=== PATIENT | female | born 1930 | race Caucasian/White ===

== ENCOUNTER 2017-10-18 00:32 | Inpatient (IN) | payer MEDICAID, MEDICARE ==
[~2017-10-18] VITALS: Ht 160 cm; Wt 76.2 kg
[2017-10-18] MEDS ORDERED: HYDROMORPHONE 1 MG/1 ML DISP.SYRIN IV ONE ×2 (01:00→02:00)
[2017-10-18] MEDS ORDERED: ONDANSETRON HCL/PF 4 MG/2 ML VIAL IVP ONE (01:00)
[2017-10-18] MEDS ORDERED: IV NS 0.9% 500 ML BAG IV ONE (01:00)
[2017-10-18] MEDS ORDERED: ONDANSETRON HCL/PF 4 MG/2 ML VIAL ONE (01:01)
[2017-10-18] MEDS ORDERED: HYDROMORPHONE INJ 2 MG/ML DISP.SYRIN ONE ×3 (01:01→02:43)
[2017-10-18 01:38] LABS: RED BLOOD CELL COUNT(AUTO) 4.88 MIL/uL (4.0-5.2); WHITE BLOOD COUNT (AUTO) 7.4 K/uL (4.3-11.0)
[2017-10-18 01:39] LABS: BASOPHILS % (AUTO) 0.5 % (0.0-2.0); EOSINOPHILS % (AUTO) 0.1 % (0.0-6.0); HEMATOCRIT 41 % (33-45); HEMOGLOBIN 13.2 g/dL (11.5-14.8); LYMPHOCYTES # (AUTO) 1.7 /CMM (0.8-4.8); LYMPHOCYTES % (AUTO) 22.9 % (20.0-44.0); MEAN CORPUSCULAR HEMOGLOBIN 27 PG (26.0-33.0); MEAN CORPUSCULAR HGB CONC 33 g/dl (31.0-36.0); MEAN CORPUSCULAR VOLUME 83 fL (82-100); MONOCYTES # (AUTO) 0.5 /CMM (0.1-1.30); MONOCYTES % (AUTO) 7.3 % (2.0-12.0); NEUTROPHILS # (AUTO) 5.1 /CMM (1.8-8.9); NEUTROPHILS % (AUTO) 69.2 % (43.0-81.0); PLATELET COUNT (AUTO) 163 /CMM (150-450); RDW COEFFICIENT OF VARIATION 16.3 (11.5-15.0)
[2017-10-18 01:45] LABS: INR 1.03 (0.87-1.13)
[2017-10-18 01:50] LABS: CARBON DIOXIDE 27 mmol/L (21-32); CHLORIDE 104 mmol/L (98-107); CREATININE 1.5 mg/dL (0.6-1.3); GLUCOSE 132 mg/dL (74-106); SODIUM SERUM 138 mmol/L (136-145); UREA NITROGEN, BLOOD 19 mg/dL (7-18)
[2017-10-18 03:00] VITALS: BP 135/66
[2017-10-18] MEDS ORDERED: HYDROMORPHONE 1 MG/1 ML DISP.SYRIN IV PRN ×2 (03:00→05:00)
[2017-10-18] MEDS: HYDROMORPHONE INJ 2 MG/ML DISP.SYRIN IV PRN ×5 (06:25→23:27)
[2017-10-18 08:00] VITALS: BP 115/56
[2017-10-18] MEDS ORDERED: FUROSEMIDE 40 MG/4 ML VIAL IV SCH (09:30)
[2017-10-18 10:08] LABS: MAGNESIUM 2.1 mg/dL (1.8-2.4); PHOSPHORUS 2.9 mg/dL (2.5-4.9)
[2017-10-18 10:12] LABS: TROPONIN I < 0.017 ng/mL (0.00-0.056)
[2017-10-18 10:19] LABS: CHOLESTEROL 132 mg/dL (<200); HDL CHOLESTEROL 35 mg/dL (40-60); LDL 75 mg/dL (0-99); THYROID STIMULATING HORMONE 2.117 uIU/mL (0.358-3.74); TRIGLYCERIDES 181 mg/dL (30-150)
[2017-10-18 16:00] VITALS: BP_SYST 115; BP_SYST 142; BP_DIAS 56; BP_DIAS 77
[2017-10-18 20:00] VITALS: BP 113/59
[2017-10-18] MEDS: IV NS 0.9% 1,000 ML IV PRN (22:42)
[2017-10-19] MEDS ORDERED: ACETAMINOPHEN 325 MG TABLET PO PRN
[2017-10-19] MEDS: HYDROMORPHONE INJ 2 MG/ML DISP.SYRIN IV PRN ×3 (05:58→14:24)
[2017-10-19 07:29] LABS: ALKALINE PHOSPHATASE 83 U/L (46-116); BILIRUBIN,TOTAL 0.8 mg/dL (0.2-1.0); CALCIUM, SERUM 9.2 mg/dL (8.5-10.1); CARBON DIOXIDE 26 mmol/L (21-32); CHLORIDE 102 mmol/L (98-107); CREATININE 1.4 mg/dL (0.6-1.3); GLUCOSE 160 mg/dL (74-106); PHOSPHORUS 3.1 mg/dL (2.5-4.9); POTASSIUM 4.4 mmol/L (3.5-5.1); SODIUM SERUM 139 mmol/L (136-145); UREA NITROGEN, BLOOD 14 mg/dL (7-18)
[2017-10-19 07:30] LABS: ALANINE AMINOTRANSFERASE 15 U/L (12-78); ASPARTATE AMINOTRANSFERASE 18 U/L (15-37); TOTAL PROTEIN, SERUM 6.9 g/dL (6.4-8.2)
[2017-10-19 07:47] LABS: BASOPHILS % (AUTO) 0.1 % (0.0-2.0); EOSINOPHILS % (AUTO) 0.1 % (0.0-6.0); HEMATOCRIT 43 % (33-45); HEMOGLOBIN 14.3 g/dL (11.5-14.8); LYMPHOCYTES # (AUTO) 1.2 /CMM (0.8-4.8); LYMPHOCYTES % (AUTO) 11.6 % (20.0-44.0); MEAN CORPUSCULAR HEMOGLOBIN 28 PG (26.0-33.0); MEAN CORPUSCULAR HGB CONC 34 g/dl (31.0-36.0); MEAN CORPUSCULAR VOLUME 83 fL (82-100); MONOCYTES # (AUTO) 0.6 /CMM (0.1-1.30); MONOCYTES % (AUTO) 5.6 % (2.0-12.0); NEUTROPHILS # (AUTO) 8.7 /CMM (1.8-8.9); NEUTROPHILS % (AUTO) 82.6 % (43.0-81.0); PLATELET COUNT (AUTO) 171 /CMM (150-450); RDW COEFFICIENT OF VARIATION 14.8 (11.5-15.0); RED BLOOD CELL COUNT(AUTO) 5.19 MIL/uL (4.0-5.2); WHITE BLOOD COUNT (AUTO) 10.5 K/uL (4.3-11.0)
[2017-10-19 08:00] VITALS: BP 170/76
[2017-10-19] MEDS ORDERED: ONDANSETRON HCL/PF 4 MG/2 ML VIAL IV PRN (09:00)
[2017-10-19] MEDS ORDERED: HYDROMORPHONE INJ 2 MG/ML DISP.SYRIN IV ONE (11:00)
[2017-10-19] MEDS ORDERED: CLON0.1T PO (12:42)
[2017-10-19] MEDS ORDERED: AMLO5TAB2 PO (12:42)
[2017-10-19] MEDS ORDERED: MYRBETRIQ PO (12:42)
[2017-10-19] MEDS ORDERED: CLON1TAB5 PO (12:42)
[2017-10-19] MEDS ORDERED: GABA-534 PO (12:42)
[2017-10-19] MEDS ORDERED: ROSU40TA PO (12:42)
[2017-10-19] MEDS ORDERED: ASPI-1152 PO (12:42)
[2017-10-19] MEDS ORDERED: CLOP75TA15 PO (12:42)
[2017-10-19] MEDS ORDERED: ALLO300T2 PO (12:42)
[2017-10-19] MEDS ORDERED: ESOM40CA PO (12:42)
[2017-10-19] MEDS ORDERED: OLME40TA12 PO (12:42)
[2017-10-19] MEDS ORDERED: GLIM1TAB2 PO (12:42)
[2017-10-19] MEDS ORDERED: SITA100T PO (12:42)
[2017-10-19] MEDS ORDERED: DULO30CA2 PO (12:42)
[2017-10-19] MEDS ORDERED: CARV25TA2 PO (12:42)
[2017-10-19] MEDS: DULOXETINE HCL 30 MG CAPSULE.DR PO SCH (14:00)
[2017-10-19] MEDS: ASPIRIN EC 81 MG TABLET.DR PO SCH (14:27)
[2017-10-19] MEDS: AMLODIPINE BESYLATE 5 MG TABLET PO SCH (14:27)
[2017-10-19] MEDS: CARVEDILOL 12.5 MG TABLET PO SCH ×2 (14:28→21:01)
[2017-10-19] MEDS: clonazePAM 1 MG TABLET PO SCH (14:28)
[2017-10-19] MEDS: GABAPENTIN 300 MG CAPSULE PO SCH ×2 (14:28→16:35)
[2017-10-19] MEDS ORDERED: Z GUARD REMEDY 2 OZ OINT TP PRN (15:30)
[2017-10-19 16:00] VITALS: BP 180/90
[2017-10-19] MEDS: CLONIDINE HCL 0.1 MG TABLET PO SCH (16:35)
[2017-10-19] MEDS: HYDROCODONE/APAP 5/325MG 1 EACH TABLET PO PRN (16:37)
[2017-10-19 20:00] VITALS: BP 135/61
[2017-10-20] MEDS: HYDROCODONE/APAP 5/325MG 1 EACH TABLET PO PRN ×3 (01:58→16:39)
[2017-10-20] MEDS: IV NS 0.9% 1,000 ML IV PRN (03:10)
[2017-10-20 05:00] VITALS: BP 141/58
[2017-10-20] MEDS ORDERED: ANESTHESIA TRAY IN PYXIS 1 EA TRAY MC ONE (06:17)
[2017-10-20] MEDS ORDERED: BACITRACIN 50000 UNITS/VIAL ONE (07:01)
[2017-10-20] MEDS ORDERED: FENTANYL PF 100MCG/2ML AMPUL ONE ×2 (07:13→08:54)
[2017-10-20] MEDS ORDERED: LIDOCAINE 0.5%-EPI 1:200,000 50 ML VIAL ONE (08:02)
[2017-10-20] MEDS ORDERED: LIDOCAINE 1%-EPI 1:100,000 20 ML VIAL ONE (08:02)
[2017-10-20] MEDS ORDERED: LIDOCAINE HCL/PF 1 % 2ML ONE (08:02)
[2017-10-20] MEDS ORDERED: LIDOCAINE 0.5% HCL 50 ML VIAL ONE (08:03)
[2017-10-20 09:45] VITALS: BP 110/57
[2017-10-20 10:00] VITALS: BP_SYST 110; BP_SYST 115; BP_DIAS 56; BP_DIAS 57
[2017-10-20] MEDS: CLONIDINE HCL 0.1 MG TABLET PO SCH ×3 (10:07→16:39)
[2017-10-20] MEDS: GABAPENTIN 300 MG CAPSULE PO SCH ×2 (10:07→16:39)
[2017-10-20] MEDS: DULOXETINE HCL 30 MG CAPSULE.DR PO SCH (10:07)
[2017-10-20] MEDS: CARVEDILOL 12.5 MG TABLET PO SCH ×2 (10:07→21:50)
[2017-10-20] MEDS: ASPIRIN EC 81 MG TABLET.DR PO SCH (10:08)
[2017-10-20] MEDS: clonazePAM 1 MG TABLET PO SCH (10:08)
[2017-10-20] MEDS: AMLODIPINE BESYLATE 5 MG TABLET PO SCH (10:08)
[2017-10-20] MEDS: ANCEF 1 GM/50 ML D5W IV SCH ×4 (15:23→23:02)
[2017-10-20 16:00] VITALS: BP_SYST 126; BP_SYST 138; BP_DIAS 54; BP_DIAS 70
[2017-10-20] MEDS: HYDROMORPHONE INJ 2 MG/ML DISP.SYRIN IV PRN (17:59)
[2017-10-20 20:00] VITALS: BP 109/64
[2017-10-21] MEDS: HYDROMORPHONE INJ 2 MG/ML DISP.SYRIN IV PRN ×4 (01:09→14:27)
[2017-10-21] MEDS: IV NS 0.9% 1,000 ML IV PRN ×2 (05:06→20:04)
[2017-10-21 08:00] VITALS: BP 146/70
[2017-10-21] MEDS: GABAPENTIN 300 MG CAPSULE PO SCH ×2 (08:46→16:19)
[2017-10-21] MEDS: CLONIDINE HCL 0.1 MG TABLET PO SCH ×3 (08:46→16:20)
[2017-10-21] MEDS: AMLODIPINE BESYLATE 5 MG TABLET PO SCH (08:46)
[2017-10-21] MEDS: ASPIRIN EC 81 MG TABLET.DR PO SCH (08:46)
[2017-10-21] MEDS: CARVEDILOL 12.5 MG TABLET PO SCH ×2 (08:46→21:00)
[2017-10-21] MEDS: DULOXETINE HCL 30 MG CAPSULE.DR PO SCH (08:46)
[2017-10-21] MEDS: clonazePAM 1 MG TABLET PO SCH (08:47)
[2017-10-21] MEDS: ENOXAPARIN SODIUM 30 MG/0.3 ML DISP.SYRIN SQ SCH (08:54)
[2017-10-21 09:21] LABS: CALCIUM, SERUM 8.4 mg/dL (8.5-10.1); CARBON DIOXIDE 25 mmol/L (21-32); CHLORIDE 104 mmol/L (98-107); CREATININE 1.2 mg/dL (0.6-1.3); GLUCOSE 145 mg/dL (74-106); POTASSIUM 4.3 mmol/L (3.5-5.1); SODIUM SERUM 136 mmol/L (136-145); UREA NITROGEN, BLOOD 30 mg/dL (7-18)
[2017-10-21 09:26] LABS: ALANINE AMINOTRANSFERASE 14 U/L (12-78); ALBUMIN 2.4 g/dL (3.4-5.0); ALKALINE PHOSPHATASE 68 U/L (46-116); ASPARTATE AMINOTRANSFERASE 15 U/L (15-37); BILIRUBIN,TOTAL 0.4 mg/dL (0.2-1.0); PHOSPHORUS 3.2 mg/dL (2.5-4.9); TOTAL PROTEIN, SERUM 5.8 g/dL (6.4-8.2)
[2017-10-21 09:37] LABS: BASOPHILS % (AUTO) 0.2 % (0.0-2.0); EOSINOPHILS % (AUTO) 0.2 % (0.0-6.0); HEMATOCRIT 36 % (33-45); HEMOGLOBIN 12.4 g/dL (11.5-14.8); LYMPHOCYTES # (AUTO) 1.2 /CMM (0.8-4.8); LYMPHOCYTES % (AUTO) 13.1 % (20.0-44.0); MEAN CORPUSCULAR HEMOGLOBIN 28 PG (26.0-33.0); MEAN CORPUSCULAR HGB CONC 34 g/dl (31.0-36.0); MEAN CORPUSCULAR VOLUME 83 fL (82-100); MONOCYTES # (AUTO) 0.8 /CMM (0.1-1.30); NEUTROPHILS # (AUTO) 7.4 /CMM (1.8-8.9); NEUTROPHILS % (AUTO) 77.5 % (43.0-81.0); PLATELET COUNT (AUTO) 161 /CMM (150-450); RED BLOOD CELL COUNT(AUTO) 4.39 MIL/uL (4.0-5.2); WHITE BLOOD COUNT (AUTO) 9.4 K/uL (4.3-11.0)
[2017-10-21] MEDS ORDERED: ERGOCALCIFEROL (VITAMIN D 2) 50,000 UNIT CAPSULE PO SCH (11:00)
[2017-10-21] MEDS: HYDROCODONE/APAP 5/325MG 1 EACH TABLET PO PRN (11:55)
[2017-10-21 16:00] VITALS: BP 90/49
[2017-10-21 20:00] VITALS: BP_SYST 117; BP_SYST 99; BP_DIAS 59
[2017-10-22] MEDS: HYDROMORPHONE INJ 2 MG/ML DISP.SYRIN IV PRN ×3 (01:28→08:32)
[2017-10-22 07:59] VITALS: BP 173/65
[2017-10-22] MEDS: ASPIRIN EC 81 MG TABLET.DR PO SCH (08:59)
[2017-10-22] MEDS: DULOXETINE HCL 30 MG CAPSULE.DR PO SCH (08:59)
[2017-10-22] MEDS: clonazePAM 1 MG TABLET PO SCH (08:59)
[2017-10-22] MEDS: GABAPENTIN 300 MG CAPSULE PO SCH ×2 (09:00→16:15)
[2017-10-22] MEDS: CARVEDILOL 12.5 MG TABLET PO SCH (09:00)
[2017-10-22] MEDS: ENOXAPARIN SODIUM 30 MG/0.3 ML DISP.SYRIN SQ SCH (09:03)
[2017-10-22] MEDS: CLONIDINE HCL 0.1 MG TABLET PO SCH ×3 (09:57→16:15)
[2017-10-22] MEDS: AMLODIPINE BESYLATE 5 MG TABLET PO SCH (09:57)
[2017-10-22] MEDS: IV NS 0.9% 1,000 ML IV PRN (10:13)
[2017-10-22] MEDS ORDERED: ERGOCALCIFEROL (VITAMIN D 2) 50,000 UNIT CAPSULE PO SCH (11:00)
[2017-10-22] MEDS ORDERED: HYDR-3972 PO (15:12)
[2017-10-22 16:13] VITALS: BP 110/63
[2017-10-22 16:15] VITALS: BP 110/63
[2017-10-22] MEDS: HYDROCODONE/APAP 5/325MG 1 EACH TABLET PO PRN (16:15)
== END 2017-10-22 17:47 | DRG 301 ==
LOC: ER 00:33 → MED 02:35 → MEDSG2 10-20 19:53
PROVIDERS: ADMIT Internal Medicine; ATTEND Internal Medicine
PROC: 0SRR0JZ Replacement of Right Hip Joint, Femoral Surface with Synthetic Substitute, Open Approach (ICD-10-PCS; principal; 2017-10-20 07:00)
DX: S72.001A Fracture of unspecified part of neck of right femur, initial encounter for closed fracture (principal); N17.0 Acute kidney failure with tubular necrosis; I11.0 Hypertensive heart disease with heart failure; I50.32 Chronic diastolic (congestive) heart failure; D68.59 Other primary thrombophilia; W01.0XXA Fall on same level from slipping, tripping and stumbling without subsequent striking against object, initial encounter; Y92.009 Unspecified place in unspecified non-institutional (private) residence as the place of occurrence of the external cause; I25.10 Atherosclerotic heart disease of native coronary artery without angina pectoris; I35.0 Nonrheumatic aortic (valve) stenosis; D50.9 Iron deficiency anemia, unspecified; Y93.9 Activity, unspecified; Y92.003 Bedroom of unspecified non-institutional (private) residence as the place of occurrence of the external cause
CPT/HCPCS: 36415; 71045-TC; 73501; 73502; 80048-TC; 80053-TC; 80061-TC; 82306; 83605-TC; 83735-TC; 84100-TC; 84439-TC; 84443-TC; 84484-TC; 85025-TC; 85730-TC; 86850-TC; 87081-TC; 93307-TC; 97110-TC; 97112-TC; 97116-TC; 97530-TC; A4606; J0690; J1170; J1650; J1940; J2405; J3010; J3490; J7030; J7040; J7060; Z7610

== ENCOUNTER 2018-01-09 12:54 | Inpatient (IN) | payer MEDICARE, MEDICAID ==
[~2018-01-09] VITALS: Ht 165.1 cm; Wt 72.6 kg
[~2018-01-09 12:54] MED LIST: ALLO300T2 PO; AMLO5TAB7 PO; ASPI-1152 PO; CARV25TA2 PO; CLON0.1T PO; CLON1TAB5 PO; CLOP75TA15 PO; DULO30CA2 PO; ESOM40CA PO; GABA-534 PO; GLIM1TAB2 PO; HYDR-3972 PO; MYRBETRIQ PO; OLME40TA12 PO; ROSU40TA PO; SITA100T PO
[2018-01-09] MEDS ORDERED: ASCO500T9 PO (13:26)
[2018-01-09] MEDS ORDERED: HYDR-4076 PO (13:26)
[2018-01-09] MEDS ORDERED: LATA2.5D7 EACHEYE (13:26)
[2018-01-09] MEDS ORDERED: AMIN30LI4 PO (13:26)
[2018-01-09] MEDS ORDERED: FERR325T23 PO (13:26)
[2018-01-09] MEDS ORDERED: DORZ10DR11 LEFTEYE (13:26)
[2018-01-09] MEDS ORDERED: BRIM5DRO3 LEFTEYE (13:26)
[2018-01-09] MEDS ORDERED: CYAN10009 PO (13:26)
[2018-01-09] MEDS ORDERED: POLY15DR40 EACHEYE (13:26)
[2018-01-09] MEDS ORDERED: HYDR-552 PO (13:26)
[2018-01-09] MEDS ORDERED: CHOL100044 PO (13:26)
[2018-01-09] MEDS ORDERED: ACID1TAB12 PO (13:26)
[2018-01-09] MEDS ORDERED: ZOLP5TAB8 PO (13:26)
[2018-01-09] MEDS ORDERED: PANT40TA2 PO (13:26)
[2018-01-09] MEDS ORDERED: MULT-24 PO (13:26)
[2018-01-09] MEDS ORDERED: LISI10TA5 PO (13:26)
[2018-01-09] MEDS ORDERED: DOCU-141 PO (13:26)
[2018-01-09] MEDS ORDERED: BISO5TAB2 PO (13:26)
[2018-01-09] MEDS ORDERED: LINA5TAB PO (13:26)
[2018-01-09] MEDS ORDERED: ACET-868 PO (13:26)
[2018-01-09] MEDS ORDERED: ALBU2.5V38 IH (13:26)
[2018-01-09] MEDS ORDERED: BISA5TAB10 PO (13:26)
[2018-01-09] MEDS ORDERED: ATOR10TA PO (13:26)
[2018-01-09 13:48] LABS: BASOPHILS % (AUTO) 0.2 % (0.0-2.0); HEMATOCRIT 40 % (33-45); HEMOGLOBIN 12.6 g/dL (11.5-14.8); LYMPHOCYTES # (AUTO) 1.6 /CMM (0.8-4.8); LYMPHOCYTES % (AUTO) 13.4 % (20.0-44.0); MEAN CORPUSCULAR HGB CONC 32 g/dl (31.0-36.0); MEAN CORPUSCULAR VOLUME 92 fL (82-100); MONOCYTES # (AUTO) 1.4 /CMM (0.1-1.30); MONOCYTES % (AUTO) 11.9 % (2.0-12.0); NEUTROPHILS # (AUTO) 8.7 /CMM (1.8-8.9); NEUTROPHILS % (AUTO) 74.5 % (43.0-81.0); PLATELET COUNT (AUTO) 226 /CMM (150-450); RDW COEFFICIENT OF VARIATION 19.1 (11.5-15.0); RED BLOOD CELL COUNT(AUTO) 4.37 MIL/uL (4.0-5.2); WHITE BLOOD COUNT (AUTO) 11.6 K/uL (4.3-11.0)
[2018-01-09 13:59] LABS: CALCIUM, SERUM 8.9 mg/dL (8.5-10.1); CARBON DIOXIDE 22 mmol/L (21-32); CHLORIDE 106 mmol/L (98-107); CREATININE 1.3 mg/dL (0.6-1.3); GLUCOSE 120 mg/dL (74-106); POTASSIUM 3.7 mmol/L (3.5-5.1); SODIUM SERUM 139 mmol/L (136-145); UREA NITROGEN, BLOOD 24 mg/dL (7-18)
[2018-01-09 14:06] LABS: TROPONIN I < 0.017 ng/mL (0.00-0.056)
[2018-01-09 14:07] LABS: INR 1.01 (0.87-1.13)
[2018-01-09 14:13] LABS: ALANINE AMINOTRANSFERASE 10 U/L (12-78); ALBUMIN 2.9 g/dL (3.4-5.0); ALKALINE PHOSPHATASE 117 U/L (46-116); ASPARTATE AMINOTRANSFERASE 15 U/L (15-37); BILIRUBIN,DIRECT 0.2 mg/dL (0.0-0.2); BILIRUBIN,TOTAL 0.6 mg/dL (0.2-1.0); LIPASE 77 U/L (73-393); TOTAL PROTEIN, SERUM 6.4 g/dL (6.4-8.2)
[2018-01-09] MEDS ORDERED: FUROSEMIDE 20 MG/2 ML VIAL IV ONE (15:00)
[2018-01-09] MEDS ORDERED: FUROSEMIDE 20 MG/2 ML VIAL ONE (15:18)
[2018-01-09] MEDS ORDERED: MAGNESIUM HYDROXIDE 30 ML UDC PO PRN (17:00)
[2018-01-09] MEDS ORDERED: Z GUARD REMEDY 2 OZ OINT TP PRN (17:00)
[2018-01-09] MEDS ORDERED: ACETAMINOPHEN 325 MG TABLET PO PRN (17:00)
[2018-01-09] MEDS ORDERED: MAG HYDROX/AL HYDROX/SIMETH 30 ML UDC PO PRN (17:00)
[2018-01-09 18:00] VITALS: BP 124/66
[2018-01-09] MEDS ORDERED: BISACODYL (5 MG) 5 MG TABLET.DR PO PRN (19:30)
[2018-01-09] MEDS ORDERED: hydrALAZINE HCL 25 MG TABLET PO PRN (19:30)
[2018-01-09 20:00] VITALS: BP 108/55
[2018-01-09] MEDS: HYDROCODONE/APAP 5/325MG 1 EACH TABLET PO PRN (20:18)
[2018-01-09] MEDS: ENOXAPARIN SODIUM 30 MG/0.3 ML DISP.SYRIN SQ SCH (20:19)
[2018-01-09] MEDS: TIMOLOL MAL/DORZOLAM HCL OPHTH 10 ML BOTTLE LEFTEYE SCH (21:00)
[2018-01-09] MEDS ORDERED: LATANOPROST EYE DROP 0.005% 2.5 ML BOTTLE ONE (21:52)
[2018-01-09] MEDS: ATORVASTATIN 10 MG TABLET PO SCH (23:22)
[2018-01-09] MEDS: LATANOPROST EYE DROP 0.005% 2.5 ML BOTTLE EACHEYE SCH (23:23)
[2018-01-09] MEDS: ZOLPIDEM TARTRATE 5 MG TABLET PO PRN (23:24)
[2018-01-09] MEDS: ALLOPURINOL 100 MG TABLET PO SCH (23:24)
[2018-01-10] VITALS: BP 131/65
[2018-01-10] MEDS ORDERED: ALBUTEROL FS 2.5 MG/3 ML VIAL.NEB NEB PRN (01:30)
[2018-01-10 04:00] VITALS: BP_SYST 125; BP_SYST 131; BP_DIAS 63; BP_DIAS 65
[2018-01-10 04:33] VITALS: BP 125/63
[2018-01-10] MEDS ORDERED: POLYVINYL ALCOHOL 15 ML BOTTLE EACHEYE PRN (07:00)
[2018-01-10 08:00] VITALS: BP 119/56
[2018-01-10] MEDS: ONDANSETRON HCL/PF 4 MG/2 ML VIAL IVP PRN (08:37)
[2018-01-10] MEDS: ASPIRIN EC 81 MG TABLET.DR PO SCH (08:41)
[2018-01-10] MEDS: LINAGLIPTIN 5 MG TABLET PO SCH (08:41)
[2018-01-10] MEDS: CYANOCOBALAMIN 500 MCG TABLET PO SCH (08:44)
[2018-01-10] MEDS: ACIDOPHILUS/BULGARICUS 1 EACH TAB.CHEW PO SCH (08:44)
[2018-01-10] MEDS: CLOPIDOGREL BISULFATE 75 MG TABLET PO SCH (08:44)
[2018-01-10] MEDS: LISINOPRIL (10MG) 10 MG TABLET PO SCH ×2 (08:48→17:00)
[2018-01-10] MEDS: CHOLECALCIFEROL 1,000 UNIT TABLET (VIT D3) PO SCH (08:48)
[2018-01-10] MEDS: PANTOPRAZOLE 40 MG TABLET.DR PO SCH (08:48)
[2018-01-10] MEDS: ASCORBIC ACID 500 MG TABLET PO SCH ×2 (08:48→16:36)
[2018-01-10] MEDS: MULTIVITAMINS,THERAGRAN 1 UDTAB TABLET PO SCH (08:48)
[2018-01-10] MEDS: FERROUS SULFATE (325 MG) 325 MG/TAB TABLET PO SCH (08:50)
[2018-01-10] MEDS: HYDROCODONE/APAP 5/325MG 1 EACH TABLET PO PRN ×3 (08:54→22:29)
[2018-01-10] MEDS ORDERED: GABAPENTIN 300 MG CAPSULE PO SCH (09:00)
[2018-01-10] MEDS: LEVOFLOXACIN 750 MG /D5W 150ML 750 MG in PREMIX 1 EA IV SCH (09:24)
[2018-01-10] MEDS: TIMOLOL MAL/DORZOLAM HCL OPHTH 10 ML BOTTLE LEFTEYE SCH ×2 (09:24→20:34)
[2018-01-10] MEDS: BISOPROLOL FUMARATE 5 MG TABLET PO SCH (09:25)
[2018-01-10 09:38] LABS: BASOPHILS % (AUTO) 0.3 % (0.0-2.0); HEMATOCRIT 39 % (33-45); HEMOGLOBIN 12.3 g/dL (11.5-14.8); LYMPHOCYTES # (AUTO) 1.8 /CMM (0.8-4.8); MEAN CORPUSCULAR HGB CONC 31 g/dl (31.0-36.0); MEAN CORPUSCULAR VOLUME 91 fL (82-100); MONOCYTES # (AUTO) 0.9 /CMM (0.1-1.30); MONOCYTES % (AUTO) 7.4 % (2.0-12.0); NEUTROPHILS # (AUTO) 9.3 /CMM (1.8-8.9); NEUTROPHILS % (AUTO) 77.3 % (43.0-81.0); PLATELET COUNT (AUTO) 252 /CMM (150-450); RDW COEFFICIENT OF VARIATION 19.5 (11.5-15.0)
[2018-01-10 09:52] LABS: CALCIUM, SERUM 8.7 mg/dL (8.5-10.1); CARBON DIOXIDE 22 mmol/L (21-32); CHLORIDE 106 mmol/L (98-107); CREATININE 1.1 mg/dL (0.6-1.3); GLUCOSE 123 mg/dL (74-106); MAGNESIUM 1.7 mg/dL (1.8-2.4); PHOSPHORUS 3.2 mg/dL (2.5-4.9); POTASSIUM 3.7 mmol/L (3.5-5.1); SODIUM SERUM 139 mmol/L (136-145); UREA NITROGEN, BLOOD 18 mg/dL (7-18)
[2018-01-10] MEDS: PROSOURCE / PROSTAT (PYXIS) 30 ML UDC PO SCH ×3 (09:54→16:36)
[2018-01-10 09:57] LABS: TROPONIN I < 0.017 ng/mL (0.00-0.056)
[2018-01-10 10:03] LABS: CHOLESTEROL 152 mg/dL (<200); HDL CHOLESTEROL 33 mg/dL (40-60); LDL 102 mg/dL (0-99); THYROID STIMULATING HORMONE 1.332 uIU/mL (0.358-3.74); TRIGLYCERIDES 177 mg/dL (30-150)
[2018-01-10] MEDS ORDERED: BRIMONIDINE TARTRATE OPHT SOLN 5 ML BOTTLE OP SCH (10:27)
[2018-01-10] MEDS: METRONIDAZOLE 500MG/ NS 100ML 500 MG in PREMIX 1 EA IV SCH ×3 (12:31→23:50)
[2018-01-10] MEDS: VANCOMYCIN HCL 125 MG/2.5 ML ORAL.SUSP PO SCH ×3 (12:59→23:51)
[2018-01-10] MEDS: BRIMONIDINE TARTRATE OPHT SOLN 5 ML BOTTLE LEFTEYE SCH ×2 (13:02→16:37)
[2018-01-10 16:00] VITALS: BP 95/42
[2018-01-10] MEDS: Magnesium 1GM/D5W 100ML PREMIX 100 ML IV SCH ×2 (16:36→18:40)
[2018-01-10] MEDS: ENOXAPARIN SODIUM 30 MG/0.3 ML DISP.SYRIN SQ SCH (17:36)
[2018-01-10 20:00] VITALS: BP 94/48
[2018-01-10] MEDS: LATANOPROST EYE DROP 0.005% 2.5 ML BOTTLE EACHEYE SCH (21:13)
[2018-01-10] MEDS: ALLOPURINOL 100 MG TABLET PO SCH (21:14)
[2018-01-10] MEDS: ZOLPIDEM TARTRATE 5 MG TABLET PO PRN (21:14)
[2018-01-10] MEDS: ATORVASTATIN 10 MG TABLET PO SCH (21:14)
[2018-01-11] MEDS: HYDROCODONE/APAP 5/325MG 1 EACH TABLET PO PRN ×3 (02:49→19:56)
[2018-01-11] MEDS: METRONIDAZOLE 500MG/ NS 100ML 500 MG in PREMIX 1 EA IV SCH ×4 (05:20→23:20)
[2018-01-11] MEDS: VANCOMYCIN HCL 125 MG/2.5 ML ORAL.SUSP PO SCH ×4 (05:22→23:20)
[2018-01-11 06:12] LABS: BASOPHILS % (AUTO) 0.4 % (0.0-2.0); CALCIUM, SERUM 8.8 mg/dL (8.5-10.1); CARBON DIOXIDE 22 mmol/L (21-32); CHLORIDE 106 mmol/L (98-107); CREATININE 1.2 mg/dL (0.6-1.3); GLUCOSE 85 mg/dL (74-106); HEMATOCRIT 38 % (33-45); LYMPHOCYTES # (AUTO) 1.2 /CMM (0.8-4.8); LYMPHOCYTES % (AUTO) 14.2 % (20.0-44.0); MAGNESIUM 2.2 mg/dL (1.8-2.4); MEAN CORPUSCULAR HGB CONC 32 g/dl (31.0-36.0); MEAN CORPUSCULAR VOLUME 91 fL (82-100); MONOCYTES # (AUTO) 0.8 /CMM (0.1-1.30); MONOCYTES % (AUTO) 9.3 % (2.0-12.0); NEUTROPHILS # (AUTO) 6.5 /CMM (1.8-8.9); NEUTROPHILS % (AUTO) 76.1 % (43.0-81.0); PLATELET COUNT (AUTO) 226 /CMM (150-450); POTASSIUM 3.6 mmol/L (3.5-5.1); RDW COEFFICIENT OF VARIATION 18.7 (11.5-15.0); RED BLOOD CELL COUNT(AUTO) 4.11 MIL/uL (4.0-5.2); SODIUM SERUM 138 mmol/L (136-145); UREA NITROGEN, BLOOD 17 mg/dL (7-18); WHITE BLOOD COUNT (AUTO) 8.6 K/uL (4.3-11.0)
[2018-01-11 08:00] VITALS: BP 123/67
[2018-01-11] MEDS: PANTOPRAZOLE 40 MG TABLET.DR PO SCH (08:15)
[2018-01-11] MEDS: CLOPIDOGREL BISULFATE 75 MG TABLET PO SCH (08:15)
[2018-01-11] MEDS: FERROUS SULFATE (325 MG) 325 MG/TAB TABLET PO SCH (08:15)
[2018-01-11] MEDS: CYANOCOBALAMIN 500 MCG TABLET PO SCH (08:15)
[2018-01-11] MEDS: CHOLECALCIFEROL 1,000 UNIT TABLET (VIT D3) PO SCH (08:15)
[2018-01-11] MEDS: ACIDOPHILUS/BULGARICUS 1 EACH TAB.CHEW PO SCH (08:15)
[2018-01-11] MEDS: ASCORBIC ACID 500 MG TABLET PO SCH ×2 (08:15→17:10)
[2018-01-11] MEDS: MULTIVITAMINS,THERAGRAN 1 UDTAB TABLET PO SCH (08:15)
[2018-01-11] MEDS: ASPIRIN EC 81 MG TABLET.DR PO SCH (08:15)
[2018-01-11] MEDS: LISINOPRIL (10MG) 10 MG TABLET PO SCH ×2 (08:16→17:00)
[2018-01-11] MEDS: LINAGLIPTIN 5 MG TABLET PO SCH (08:16)
[2018-01-11] MEDS: TIMOLOL MAL/DORZOLAM HCL OPHTH 10 ML BOTTLE LEFTEYE SCH ×2 (08:34→20:52)
[2018-01-11] MEDS: PROSOURCE / PROSTAT (PYXIS) 30 ML UDC PO SCH ×3 (08:35→17:00)
[2018-01-11] MEDS: BISOPROLOL FUMARATE 5 MG TABLET PO SCH (08:35)
[2018-01-11] MEDS: BRIMONIDINE TARTRATE OPHT SOLN 5 ML BOTTLE LEFTEYE SCH ×3 (09:00→17:00)
[2018-01-11 16:00] VITALS: BP 106/56
[2018-01-11] MEDS: ENOXAPARIN SODIUM 30 MG/0.3 ML DISP.SYRIN SQ SCH (17:08)
[2018-01-11] MEDS: CHOLESTYRAMINE/ASPARTAME 4 G/PKT PACKET PO SCH (19:50)
[2018-01-11 20:00] VITALS: BP 114/65
[2018-01-11] MEDS: RIFAXIMIN 200 MG TABLET PO SCH (20:52)
[2018-01-11] MEDS: ATORVASTATIN 10 MG TABLET PO SCH (21:20)
[2018-01-11] MEDS: ALLOPURINOL 100 MG TABLET PO SCH (21:21)
[2018-01-11] MEDS: LATANOPROST EYE DROP 0.005% 2.5 ML BOTTLE EACHEYE SCH (21:21)
[2018-01-11] MEDS: ZOLPIDEM TARTRATE 5 MG TABLET PO PRN (21:26)
[2018-01-12] MEDS: VANCOMYCIN HCL 125 MG/2.5 ML ORAL.SUSP PO SCH ×3 (05:05→17:47)
[2018-01-12] MEDS: METRONIDAZOLE 500MG/ NS 100ML 500 MG in PREMIX 1 EA IV SCH ×4 (05:05→23:49)
[2018-01-12] MEDS: ONDANSETRON HCL/PF 4 MG/2 ML VIAL IVP PRN (05:29)
[2018-01-12 08:00] VITALS: BP 110/80
[2018-01-12] MEDS: HYDROCODONE/APAP 5/325MG 1 EACH TABLET PO PRN ×4 (08:15→21:06)
[2018-01-12] MEDS: CYANOCOBALAMIN 500 MCG TABLET PO SCH (08:22)
[2018-01-12] MEDS: CHOLECALCIFEROL 1,000 UNIT TABLET (VIT D3) PO SCH (08:22)
[2018-01-12] MEDS: MULTIVITAMINS,THERAGRAN 1 UDTAB TABLET PO SCH (08:22)
[2018-01-12] MEDS: ACIDOPHILUS/BULGARICUS 1 EACH TAB.CHEW PO SCH (08:22)
[2018-01-12] MEDS: ASCORBIC ACID 500 MG TABLET PO SCH ×2 (08:22→17:47)
[2018-01-12] MEDS: CLOPIDOGREL BISULFATE 75 MG TABLET PO SCH (08:22)
[2018-01-12] MEDS: LINAGLIPTIN 5 MG TABLET PO SCH (08:22)
[2018-01-12] MEDS: ASPIRIN EC 81 MG TABLET.DR PO SCH (08:22)
[2018-01-12] MEDS: PANTOPRAZOLE 40 MG TABLET.DR PO SCH (08:23)
[2018-01-12] MEDS: FERROUS SULFATE (325 MG) 325 MG/TAB TABLET PO SCH (08:23)
[2018-01-12] MEDS: LISINOPRIL (10MG) 10 MG TABLET PO SCH ×2 (08:23→17:48)
[2018-01-12] MEDS: LEVOFLOXACIN 750 MG /D5W 150ML 750 MG in PREMIX 1 EA IV SCH (08:27)
[2018-01-12] MEDS: RIFAXIMIN 200 MG TABLET PO SCH ×3 (08:27→17:47)
[2018-01-12] MEDS: BISOPROLOL FUMARATE 5 MG TABLET PO SCH (08:28)
[2018-01-12] MEDS: TIMOLOL MAL/DORZOLAM HCL OPHTH 10 ML BOTTLE LEFTEYE SCH ×2 (08:28→21:00)
[2018-01-12] MEDS: CHOLESTYRAMINE/ASPARTAME 4 G/PKT PACKET PO SCH (08:45)
[2018-01-12] MEDS: PROSOURCE / PROSTAT (PYXIS) 30 ML UDC PO SCH ×3 (10:17→16:31)
[2018-01-12] MEDS: BRIMONIDINE TARTRATE OPHT SOLN 5 ML BOTTLE LEFTEYE SCH ×3 (10:17→17:47)
[2018-01-12 16:00] VITALS: BP 140/69
[2018-01-12] MEDS: GABAPENTIN 300 MG CAPSULE PO SCH (17:47)
[2018-01-12] MEDS: ENOXAPARIN SODIUM 30 MG/0.3 ML DISP.SYRIN SQ SCH (17:49)
[2018-01-12 20:00] VITALS: BP 112/62
[2018-01-12 20:32] VITALS: BP 112/62
[2018-01-12] MEDS: ALLOPURINOL 100 MG TABLET PO SCH (21:06)
[2018-01-12] MEDS: ATORVASTATIN 10 MG TABLET PO SCH (21:06)
[2018-01-12] MEDS: ZOLPIDEM TARTRATE 5 MG TABLET PO PRN (21:06)
[2018-01-12] MEDS: LATANOPROST EYE DROP 0.005% 2.5 ML BOTTLE EACHEYE SCH (22:00)
[2018-01-13] MEDS: METRONIDAZOLE 500MG/ NS 100ML 500 MG in PREMIX 1 EA IV SCH (05:42)
[2018-01-13] MEDS: VANCOMYCIN HCL 125 MG/2.5 ML ORAL.SUSP PO SCH ×3 (05:45→11:47)
[2018-01-13 08:00] VITALS: BP 140/71
[2018-01-13] MEDS: CHOLESTYRAMINE/ASPARTAME 4 G/PKT PACKET PO SCH (08:43)
[2018-01-13] MEDS: LINAGLIPTIN 5 MG TABLET PO SCH (08:43)
[2018-01-13] MEDS: CLOPIDOGREL BISULFATE 75 MG TABLET PO SCH (08:43)
[2018-01-13] MEDS: ASCORBIC ACID 500 MG TABLET PO SCH (08:43)
[2018-01-13] MEDS: PANTOPRAZOLE 40 MG TABLET.DR PO SCH (08:44)
[2018-01-13] MEDS: LISINOPRIL (10MG) 10 MG TABLET PO SCH (08:44)
[2018-01-13] MEDS: CYANOCOBALAMIN 500 MCG TABLET PO SCH (08:44)
[2018-01-13] MEDS: CHOLECALCIFEROL 1,000 UNIT TABLET (VIT D3) PO SCH (08:44)
[2018-01-13] MEDS: MULTIVITAMINS,THERAGRAN 1 UDTAB TABLET PO SCH (08:44)
[2018-01-13] MEDS: ACIDOPHILUS/BULGARICUS 1 EACH TAB.CHEW PO SCH (08:44)
[2018-01-13] MEDS: FERROUS SULFATE (325 MG) 325 MG/TAB TABLET PO SCH (08:44)
[2018-01-13] MEDS: ASPIRIN EC 81 MG TABLET.DR PO SCH (08:44)
[2018-01-13 08:45] VITALS: BP 140/71
[2018-01-13] MEDS: TIMOLOL MAL/DORZOLAM HCL OPHTH 10 ML BOTTLE LEFTEYE SCH (08:45)
[2018-01-13] MEDS: BRIMONIDINE TARTRATE OPHT SOLN 5 ML BOTTLE LEFTEYE SCH ×2 (08:45→12:01)
[2018-01-13] MEDS: BISOPROLOL FUMARATE 5 MG TABLET PO SCH (08:45)
[2018-01-13] MEDS: RIFAXIMIN 200 MG TABLET PO SCH ×2 (08:45→12:01)
[2018-01-13] MEDS: GABAPENTIN 300 MG CAPSULE PO SCH (08:46)
[2018-01-13] MEDS: PROSOURCE / PROSTAT (PYXIS) 30 ML UDC PO SCH ×2 (08:48→12:01)
[2018-01-13] MEDS: ONDANSETRON HCL/PF 4 MG/2 ML VIAL IVP PRN (08:51)
[2018-01-13] MEDS: HYDROCODONE/APAP 5/325MG 1 EACH TABLET PO PRN (09:28)
[2018-01-13] MEDS ORDERED: METRONIDAZOLE 250 MG TABLET PO SCH (12:00)
[2018-01-13] MEDS ORDERED: METR250T PO (12:08)
[2018-01-13] MEDS ORDERED: LEVO750T21 PO (12:08)
[2018-01-13] MEDS ORDERED: RIFA200T2 PO (12:08)
[2018-01-13] MEDS ORDERED: CHOL4PAC4 PO (12:08)
[2018-01-13] MEDS ORDERED: VANC125C11 PO (12:08)
[2018-01-13] MEDS ORDERED: NEOMY SULF/BACITRAC ZN/POLY 15 GM TUBE TP SCH (14:30)
== END 2018-01-13 16:30 | DRG 720 ==
LOC: ER 12:56 → TELE 16:05 → MED 01-10 09:45
PROVIDERS: ADMIT Nurse Practitioner Acute Care; ATTEND Nurse Practitioner Acute Care
DX: A41.9 Sepsis, unspecified organism (principal); I50.33 Acute on chronic diastolic (congestive) heart failure; A04.72 Enterocolitis due to Clostridium difficile, not specified as recurrent; S72.002A Fracture of unspecified part of neck of left femur, initial encounter for closed fracture; E44.1 Mild protein-calorie malnutrition; K57.32 Diverticulitis of large intestine without perforation or abscess without bleeding; E11.9 Type 2 diabetes mellitus without complications; I11.0 Hypertensive heart disease with heart failure; Z88.5 Allergy status to narcotic agent; Z79.82 Long term (current) use of aspirin; Z79.899 Other long term (current) drug therapy; Z79.51 Long term (current) use of inhaled steroids; S61.409A Unspecified open wound of unspecified hand, initial encounter; X58.XXXA Exposure to other specified factors, initial encounter; I35.0 Nonrheumatic aortic (valve) stenosis; W01.0XXA Fall on same level from slipping, tripping and stumbling without subsequent striking against object, initial encounter; Z96.641 Presence of right artificial hip joint; Z79.84 Long term (current) use of oral hypoglycemic drugs; Y92.009 Unspecified place in unspecified non-institutional (private) residence as the place of occurrence of the external cause; E78.5 Hyperlipidemia, unspecified
CPT/HCPCS: 36415; 71045-TC; 72170-TC; 73502; 80048-TC; 80061-TC; 80076-TC; 83605-TC; 83690-TC; 83735-TC; 83880; 84100-TC; 84443-TC; 84484-TC; 85025-TC; 85730-TC; 87045-TC; 87081-TC; 93970-TC; 97110-TC; 97116-TC; 97530-TC; A4216; A4606; J1650; J1940; J1956; J2405; J3475; J3490; J7050; Z7610

== ENCOUNTER 2018-05-06 23:27 | Inpatient (IN) | payer MEDICAID, MEDICARE ==
[~2018-05-06] VITALS: Ht 149.9 cm; Wt 63.8 kg
[~2018-05-06 23:27] MED LIST changes: +ACET-868 PO; +ACID1TAB12 PO; +ALBU2.5V38 IH; +AMIN30LI4 PO; -AMLO5TAB7 PO; +ASCO500T9 PO; +ATOR10TA PO; +BISA5TAB10 PO; +BISO5TAB2 PO; +BRIM5DRO3 LEFTEYE; -CARV25TA2 PO; +CHOL100044 PO; +CHOL4PAC4 PO; -CLON0.1T PO; -CLON1TAB5 PO; +CYAN10009 PO; +DOCU-141 PO; +DORZ10DR11 LEFTEYE; -DULO30CA2 PO; -ESOM40CA PO; +FERR325T23 PO; -GLIM1TAB2 PO; -HYDR-3972 PO; +HYDR-4076 PO; +HYDR-4384 PO; +LATA2.5D7 EACHEYE; +LEVO750T21 PO; +LINA5TAB PO; +LISI10TA5 PO; +METR250T PO; +MULT-24 PO; -MYRBETRIQ PO; -OLME40TA12 PO; +PANT40TA2 PO; +POLY15DR40 EACHEYE; +RIFA200T2 PO; -ROSU40TA PO; -SITA100T PO; +VANC125C11 PO; +ZOLP5TAB8 PO
--- NOTE | 2018-05-06 23:30 | NUR ---
PT BIBRA FROM HOME FOR SAGE AND CP SINCE LAST NIGHT, AND SWELLING ON BLE; PT AAOX4, ROMANIAN SPEAKING, RESPIRATIONS EVEN AND UNLABORED, NO SOB, PT ON MONITOR, O2 SAT AT 100% RA, VSS, NAD NOTED, AT BEDSIDE FOR EVAL
[2018-05-06] MEDS ORDERED: ASPIRIN 325 MG TABLET ONE (23:49)
[2018-05-06 23:51] LABS: BASOPHILS % (AUTO) 0.5 % (0.0-2.0); EOSINOPHILS % (AUTO) 0.1 % (0.0-6.0); HEMATOCRIT 40 % (33-45); LYMPHOCYTES # (AUTO) 2.2 /CMM (0.8-4.8); LYMPHOCYTES % (AUTO) 35.4 % (20.0-44.0); MEAN CORPUSCULAR HGB CONC 33 g/dl (31.0-36.0); MEAN CORPUSCULAR VOLUME 91 fL (82-100); MONOCYTES # (AUTO) 0.6 /CMM (0.1-1.30); NEUTROPHILS # (AUTO) 3.4 /CMM (1.8-8.9); PLATELET COUNT (AUTO) 220 /CMM (150-450); RED BLOOD CELL COUNT(AUTO) 4.38 MIL/uL (4.0-5.2); WHITE BLOOD COUNT (AUTO) 6.3 K/uL (4.3-11.0)
[2018-05-06 23:57] LABS: CALCIUM, SERUM 9.6 mg/dL (8.5-10.1); CARBON DIOXIDE 27 mmol/L (21-32); CHLORIDE 105 mmol/L (98-107); CREATININE 1.3 mg/dL (0.6-1.3); GLUCOSE 113 mg/dL (74-106); POTASSIUM 4.3 mmol/L (3.5-5.1); SODIUM SERUM 139 mmol/L (136-145); UREA NITROGEN, BLOOD 16 mg/dL (7-18)
--- NOTE | 2018-05-06 23:59 | NUR ---
PER PT, SHE TOOK ASPIRIN 162MG AT [address] HANNA MADE AWARE, CANCEL ORDER FOR [id number].
[2018-05-07] MEDS ORDERED: ASPIRIN 325 MG TABLET PO ONE
[2018-05-07 00:10] LABS: ALANINE AMINOTRANSFERASE 13 U/L (12-78); ALBUMIN 3.3 g/dL (3.4-5.0); ALKALINE PHOSPHATASE 156 U/L (46-116); ASPARTATE AMINOTRANSFERASE 11 U/L (15-37); B-TYPE NATRIURETIC PEPTIDE 796 PG/ML (0-125); BILIRUBIN,DIRECT 0.2 mg/dL (0.0-0.2); BILIRUBIN,TOTAL 0.5 mg/dL (0.2-1.0)
[2018-05-07] MEDS ORDERED: FLUT1BLS IH (00:24)
[2018-05-07] MEDS ORDERED: BRIM5DRO3 EACHEYE (00:24)
[2018-05-07] MEDS ORDERED: TRAV5DRO EACHEYE (00:24)
[2018-05-07] MEDS ORDERED: ISOS5TAB3 PO (00:24)
[2018-05-07] MEDS ORDERED: CLON0.1T PO (00:24)
[2018-05-07] MEDS ORDERED: HYDR-4354 PO (00:24)
[2018-05-07] MEDS ORDERED: GLIM1TAB2 PO (00:24)
[2018-05-07] MEDS ORDERED: ROSU40TA22 PO (00:24)
[2018-05-07] MEDS ORDERED: SITA100T PO (00:24)
[2018-05-07] MEDS ORDERED: CARV25TA2 PO (00:24)
--- NOTE | 2018-05-07 00:36 | NUR ---
REPORT GIVEN TO KAYCEE GONZALEZ FOR PERICO; ADM ESAU CP; ROOM 113-2 TELE ADM DEMETRIO POLK
--- NOTE | 2018-05-07 01:50 | NUR ---
SEWING MACHINE REPAIRER HELPER NOTE PATIENT RECEIVED FROM ER IN [facility], DAUGHTER AT BED SIDE. PATIENT IS A/O X4 BAHRAINI SPEAKING, HOWEVER DAUGHTER TRANSLATED. PATIENT DENIES CHEST PAIN AT THIS TIME HR 64 SR ON THE MONITOR. HOWEVER C/O GENERALIZED PAIN 12/14. NORCO 10-325 GIVEN PER PRN MD ORDER. PATIENT IS AMB WITH ASSIST TO THE RESTROOM. PATIENT VOIDED. LUNG SOUNDS CLEAR, DENIES SOB, . NO S/S OF ACUTE DISTRESS AT THIS TIME. PATIENT HAS PATENT INTACT 20 G IN LAC. REDNESS NOTED IN THE BREAST FOLDS AND SACRUM, STILL BLANCHABLE. PATIENT REQUESTED AMBIEN 10 MG GIVEN PER MD PRN ORDER. PATIENT ORIENTED TO UNIT, CALL LIGHT INSTRUCTIONS GIVEN, SAFETY PRECAUTIONS IN PLACE. RN WILL CONTINUE TO MONITOR.
[2018-05-07 02:00] VITALS: BP 133/59
[2018-05-07] MEDS ORDERED: ONDANSETRON HCL/PF 4 MG/2 ML VIAL IVP PRN (02:30)
[2018-05-07] MEDS ORDERED: Z GUARD REMEDY 2 OZ OINT TP PRN (02:30)
[2018-05-07] MEDS ORDERED: INSULIN REGULAR, HUMAN 100 UNIT/ML 3 ML VIAL SQ PRN (02:30)
[2018-05-07] MEDS ORDERED: DEXTROSE 50%-WATER 50 ML DISP.SYRIN IV PRN (02:30)
[2018-05-07] MEDS ORDERED: BUMETANIDE INJ 0.25 MG/ML VIAL IV ONE (02:45)
[2018-05-07] MEDS: ZOLPIDEM TARTRATE 5 MG TABLET PO PRN ×2 (02:50→21:05)
[2018-05-07] MEDS: HYDROCODONE/APAP 10/325MG 1 EA TABLET PO PRN ×3 (02:50→16:29)
[2018-05-07] MEDS ORDERED: ENOXAPARIN SODIUM 30 MG/0.3 ML DISP.SYRIN SQ ONE (03:00)
[2018-05-07 04:00] VITALS: BP 101/43
--- NOTE | 2018-05-07 06:51 | NUR ---
MARKETING PRODUCTION MANAGER NOTE NO ACUTE CHANGES THROUGHOUT THE NIGHT NO S/S OF DISTRESS. PATIENT DENIES PAIN, CHEST PAIN, SOB , DISCOMFORT. IV 20 G INTACT, PATIENT ASSISTED TO THE BATHROOM. PATIENT HR SR 64. RN WILL ENDORSE TO AM POC FOR PERICO.
[2018-05-07 07:21] LABS: BASOPHILS % (AUTO) 0.5 % (0.0-2.0); EOSINOPHILS % (AUTO) 0.1 % (0.0-6.0); HEMATOCRIT 41 % (33-45); HEMOGLOBIN 13.3 g/dL (11.5-14.8); LYMPHOCYTES # (AUTO) 2.4 /CMM (0.8-4.8); LYMPHOCYTES % (AUTO) 37.9 % (20.0-44.0); MEAN CORPUSCULAR HGB CONC 33 g/dl (31.0-36.0); MEAN CORPUSCULAR VOLUME 90 fL (82-100); MONOCYTES # (AUTO) 0.6 /CMM (0.1-1.30); MONOCYTES % (AUTO) 8.9 % (2.0-12.0); NEUTROPHILS # (AUTO) 3.3 /CMM (1.8-8.9); NEUTROPHILS % (AUTO) 52.6 % (43.0-81.0); PLATELET COUNT (AUTO) 204 /CMM (150-450); RED BLOOD CELL COUNT(AUTO) 4.52 MIL/uL (4.0-5.2); WHITE BLOOD COUNT (AUTO) 6.3 K/uL (4.3-11.0)
[2018-05-07 07:24] LABS: CALCIUM, SERUM 9.3 mg/dL (8.5-10.1); CARBON DIOXIDE 25 mmol/L (21-32); CHLORIDE 106 mmol/L (98-107); CREATININE 1.4 mg/dL (0.6-1.3); GLUCOSE 102 mg/dL (74-106); PHOSPHORUS 4.8 mg/dL (2.5-4.9); POTASSIUM 4.1 mmol/L (3.5-5.1); SODIUM SERUM 142 mmol/L (136-145); UREA NITROGEN, BLOOD 15 mg/dL (7-18)
[2018-05-07] MEDS: BLOOD SUGAR DIAGNOSTIC 1 EACH STRIP IN SCH ×4 (07:32→21:02)
[2018-05-07 08:00] VITALS: BP_SYST 125; BP_SYST 96; BP_DIAS 60; BP_DIAS 64
[2018-05-07] MEDS: GLIMEPIRIDE 1 MG TABLET PO SCH (08:57)
[2018-05-07] MEDS: CARVEDILOL 12.5 MG TABLET PO SCH ×2 (08:57→18:00)
[2018-05-07] MEDS: ASPIRIN EC 81 MG TABLET.DR PO SCH (08:58)
[2018-05-07] MEDS: LISINOPRIL (10MG) 10 MG TABLET PO SCH ×2 (08:58→17:50)
[2018-05-07] MEDS: BRIMONIDINE TARTRATE OPHT SOLN 5 ML BOTTLE EACHEYE SCH ×3 (08:59→16:31)
[2018-05-07] MEDS: LINAGLIPTIN 5 MG TABLET PO SCH (08:59)
[2018-05-07] MEDS: ISOSORBIDE DINITRATE (5MG) 5 MG TABLET PO SCH ×2 (08:59→17:50)
[2018-05-07] MEDS: CLONIDINE HCL 0.1 MG TABLET PO SCH ×2 (09:00→16:52)
[2018-05-07] MEDS: FLUTICASONE/VILANTEROL 1 EACH BLST.W.DEV IH SCH ×2 (09:00→11:36)
--- NOTE | 2018-05-07 09:05 | NUR ---
INJECTION MOLDING OPERATOR NOTES PT REQUESTS EYE DROP ONLY IN LEFT EYE.
--- NOTE | 2018-05-07 10:16 | NUR ---
WOUND CARE CONSULT: PT HAVING PROCEDURE AT THIS TIME. WILL SEE PT FOR SKIN ASSESSMENT PT CONDITION PERMITS.
--- NOTE | 2018-05-07 10:33 | NUR ---
WOUND CARE CONSULT: PT PRESENTS WITH SACRAL SCAR AND BROWN SKIN GROWTHS TO BREASTFOLDS, PRESENT ON ADMISSION. RECOMMENDATIONS MADE FOR SKIN PROTECTION AND DISCUSSED WITH NURSING STAFF. PT AMBULATES TO BATHROOM WITH ASSISTANCE. WILL SEE PRN. LANTIGUA IN AGREEMENT WITH PLAN OF CARE. CURRENT MONIQUE SCORE IS 20. Addendum: 05/07/18 at 1035 by GIOVANNY TA WNDNU Amended: Links added.
[2018-05-07 12:00] VITALS: BP_SYST 90; BP_SYST 91; BP_DIAS 46
[2018-05-07 16:00] VITALS: BP 127/71
--- NOTE | 2018-05-07 19:01 | NUR ---
MS RN NOTES ENDORSED PT TO PM SHIFT FOR PERICO. PT IN BED RESTING NO S/SX OF RESP DISTRESS. ALL NEEDS ATTENDED TO.
--- NOTE | 2018-05-07 19:45 | NUR ---
MS RN NOTES RECEIVED PT ON BED. A/O X 4. ON ROOM AIR NO RESPIRATORY DISTRESS NOTED. IV ACCESS ON LAC G20 PATENT AND INTACT. HEAD OF BED ELEVATED. SIDE RAILS UP. CALL LIGHT WITHIN REACH. BED ALARM ON. WILL CONTINUE TO MONITOR PT CLOSELY.
[2018-05-07 20:00] VITALS: BP_SYST 113; BP_SYST 115; BP_DIAS 62
[2018-05-07] MEDS: LATANOPROST EYE DROP 0.005% 2.5 ML BOTTLE EACHEYE SCH (21:02)
[2018-05-07] MEDS: ATORVASTATIN 40 MG TABLET PO SCH (21:05)
--- NOTE | 2018-05-07 21:14 | NUR ---
MS RN NOTES BS OF 70MG/DL. PT GIVEN ORANGE JUICE WITH 2 PACKETS OF SUGAR. CHARGE NURSE INFORMED. WILL MONITOR PT CLOSELY.
[2018-05-07] MEDS: CELECOXIB 100 MG CAPSULE PO SCH (21:46)
--- NOTE | 2018-05-07 23:19 | NUR ---
MS RN NOTES PT REFUSED DVT PUMP. EXPLAINED BENEFITS. PT STILL REFUSED.
[2018-05-08] VITALS: BP 138/75
[2018-05-08 04:00] VITALS: BP_SYST 167; BP_SYST 94; BP_DIAS 59; BP_DIAS 79
--- NOTE | 2018-05-08 04:13 | NUR ---
MS RN NOTES CALLED FLEXBOARD OPERATOR FOR PT COMPLAINING OF CHEST PAIN 01/13, BLOOD PRESSURE OF 167/78. GIVEN NORCO 10 PRN FOR PAIN, NO RESPIRATORY DISTRESS NOTED PT OFFERED NASAL CANNULA 2LPM, PT REFUSED, NO RESPIRATORY DISTRESS NOTED. PER FLEXBOARD OPERATOR STAT EKG. CALLED RT. WILL MONITOR PT CLOSELY.
[2018-05-08] MEDS: HYDROCODONE/APAP 10/325MG 1 EA TABLET PO PRN ×3 (04:16→18:01)
--- NOTE | 2018-05-08 04:31 | NUR ---
MS RN NOTES RT AT BEDSIDE FOR EKG.
--- NOTE | 2018-05-08 04:48 | NUR ---
MS RN NOTES DOCTOR AT BEDSIDE. PER DEMETRIO POLK, NO NEED FOR NITRO. ORDERED PRN NORCO 10 Q6H FOR PAIN. WILL MONITOR PT PAIN LEVEL CLOSELY.
--- NOTE | 2018-05-08 04:56 | NUR ---
MS RN NOTES PER PT SHE IS TAKING NORCO AT HOME, WITNESSED BY DR POLK. WILL MONITOR PT CLOSELY.
--- NOTE | 2018-05-08 06:33 | NUR ---
MS RN NOTES PT WANTS MORE PAIN MEDS, DR. VASQUEZ AT BEDSIDE. PER , NO NEED FOR ANOTHER PAIN MEDS. WILL MONITOR PT CLOSELY.
--- NOTE | 2018-05-08 06:35 | NUR ---
MS RN NOTES NO ACUTE CHANGES NOTED DURING THE SHIFT. PT COMPLAINING OF GEN PAIN, FUEL EFFICIENT AUTOMOBILE DESIGNER ORDERED NORCO 10MG PO Q6H FOR PAIN. DUE MEDS GIVEN. PROVIDED COMFORT AND SAFETY. WILL ENDORSE TO THE AM NURSE FOR CONTINUITY OF CARE.
[2018-05-08 06:49] LABS: APPEARANCE,URINE CLEAR (CLEAR); BILIRUBIN,URINE NEGATIVE (NEGATIVE); BLOOD, URINE NEGATIVE Ery/uL (NEGATIVE); COLOR,URINE YELLOW (YELLOW); KETONES,URINE NEGATIVE (NEGATIVE); LEUKOCYTE ESTERASE ,URINE 1+ (NEGATIVE); NITRITE, URINE NEGATIVE (NEGATIVE); PROTEIN,URINE NEGATIVE (NEGATIVE); UGLUCOSE NEGATIVE (NEGATIVE); UROBILINOGEN,URINE 0.2 EU/dL (0.2)
--- NOTE | 2018-05-08 07:00 | NUR ---
MS RN INITIAL NOTES PT RECEIVED IN BED, CRYING WITH GENERALIZED PAIN; ALSO C/O RADIATING CHEST PAIN. IV PULLED OUT BY PATIENT. PT AMBULATES TO BR WITH STANDBY ASSIST. INTERPRETATION PHONE AT BEDSIDE. BED IN LOCKED/LOWEST POSITION. CALL LIGHT IN REACH.
[2018-05-08 07:59] LABS: BACTERIA,URINE Rare /HPF (None Seen); RBC,URINE 0-2 /HPF (0-2); SQUAMOUS EPITHELIAL CELL,UR Few /HPF (None Seen)
[2018-05-08 08:00] VITALS: BP 175/81
[2018-05-08] MEDS: BLOOD SUGAR DIAGNOSTIC 1 EACH STRIP IN SCH ×4 (08:15→21:11)
[2018-05-08] MEDS: LINAGLIPTIN 5 MG TABLET PO SCH (08:19)
[2018-05-08] MEDS: LISINOPRIL (10MG) 10 MG TABLET PO SCH ×2 (08:19→17:00)
[2018-05-08] MEDS: ISOSORBIDE DINITRATE (5MG) 5 MG TABLET PO SCH (08:20)
[2018-05-08] MEDS: CELECOXIB 100 MG CAPSULE PO SCH ×2 (08:20→18:02)
[2018-05-08] MEDS: ASPIRIN EC 81 MG TABLET.DR PO SCH (08:20)
[2018-05-08] MEDS: CLONIDINE HCL 0.1 MG TABLET PO SCH ×2 (08:20→16:51)
[2018-05-08] MEDS: CARVEDILOL 12.5 MG TABLET PO SCH ×2 (08:20→18:01)
[2018-05-08] MEDS: ENOXAPARIN SODIUM 30 MG/0.3 ML DISP.SYRIN SQ SCH (08:22)
[2018-05-08] MEDS: GLIMEPIRIDE 1 MG TABLET PO SCH (08:30)
[2018-05-08] MEDS: FLUTICASONE/VILANTEROL 1 EACH BLST.W.DEV IH SCH (08:34)
[2018-05-08] MEDS: BRIMONIDINE TARTRATE OPHT SOLN 5 ML BOTTLE EACHEYE SCH ×3 (08:34→18:04)
--- NOTE | 2018-05-08 08:50 | NUR ---
MS RN NOTES NOTIFIED DR LAWRENCE ABOUT PT'S C/O RADIATING CHEST PAIN. MEDS ORDERED.
[2018-05-08 09:08] LABS: CREATININE, URINE 97.9 MG/DL (30.0-125.0); URINE TOTAL PROTEIN 29.7 mg/dL (0-11.9)
[2018-05-08] MEDS: NITROGLYCERIN 30 GM TUBE TP SCH ×2 (10:28→20:42)
[2018-05-08] MEDS: AMLODIPINE BESYLATE 10 MG TABLET PO SCH (11:20)
[2018-05-08 12:00] VITALS: BP_SYST 123; BP_SYST 98; BP_DIAS 42; BP_DIAS 69
[2018-05-08 12:07] LABS: MONOCYTES # (AUTO) 0.5 /CMM (0.1-1.30)
[2018-05-08 12:19] LABS: ALANINE AMINOTRANSFERASE 11 U/L (12-78); ALKALINE PHOSPHATASE 135 U/L (46-116); ASPARTATE AMINOTRANSFERASE 11 U/L (15-37); BILIRUBIN,TOTAL 0.5 mg/dL (0.2-1.0); CALCIUM, SERUM 9.1 mg/dL (8.5-10.1); CARBON DIOXIDE 25 mmol/L (21-32); CHLORIDE 105 mmol/L (98-107); CREATININE 1.2 mg/dL (0.6-1.3); GLUCOSE 101 mg/dL (74-106); MAGNESIUM 2.1 mg/dL (1.8-2.4); PHOSPHORUS 4.2 mg/dL (2.5-4.9); SODIUM SERUM 139 mmol/L (136-145); TOTAL PROTEIN, SERUM 6.2 g/dL (6.4-8.2); UREA NITROGEN, BLOOD 17 mg/dL (7-18)
[2018-05-08 12:30] LABS: BASOPHILS % (AUTO) 0.5 % (0.0-2.0); HEMATOCRIT 40 % (33-45); HEMOGLOBIN 13.2 g/dL (11.5-14.8); LYMPHOCYTES # (AUTO) 1.7 /CMM (0.8-4.8); LYMPHOCYTES % (AUTO) 20.6 % (20.0-44.0); MEAN CORPUSCULAR HGB CONC 33 g/dl (31.0-36.0); MEAN CORPUSCULAR VOLUME 90 fL (82-100); MONOCYTES % (AUTO) 5.6 % (2.0-12.0); NEUTROPHILS % (AUTO) 73.3 % (43.0-81.0); PLATELET COUNT (AUTO) 207 /CMM (150-450); RED BLOOD CELL COUNT(AUTO) 4.47 MIL/uL (4.0-5.2); WHITE BLOOD COUNT (AUTO) 8.2 K/uL (4.3-11.0)
[2018-05-08 13:18] LABS: CHOLESTEROL 146 mg/dL (<200); HDL CHOLESTEROL 43 mg/dL (40-60); LDL 78 mg/dL (0-99); TRIGLYCERIDES 168 mg/dL (30-150)
[2018-05-08 16:00] VITALS: BP 97/60
--- NOTE | 2018-05-08 19:00 | NUR ---
MS RN NOTES ENDORSED PT TO PM SHIFT FOR PERICO. PT IN ROOM SITTING IN CHAIR WATCHING TV. NO S/SX OF DISTRESS AT THIS TIME. PT REPORTED HAVING A BM AFTER PRUNE JUICE GIVEN. CONTACT ISOLATIONS MAINTAINED. ALL NEEDS ATTENDED.
--- NOTE | 2018-05-08 19:28 | NUR ---
MS RN NOTES RECEIVED PT ON BED. A/O X 4. ON ROOM AIR NO RESPIRATORY DISTRES NOTED. IV ACCESS ON RGA G22 SALINE LOCK. HEAD OF BED ELEVATED. SIDE RAILS IP. CALL LIGHT WITHIN REACH. BED ALARM ON. WILL CONTINUE TO MONITOR PT CLOSELY.
[2018-05-08 20:00] VITALS: BP_SYST 90; BP_SYST 95; BP_DIAS 47; BP_DIAS 56
[2018-05-08] MEDS: MUPIROCIN OINT 2% 22 GM TUBE SCH (20:45)
[2018-05-08] MEDS: ZOLPIDEM TARTRATE 5 MG TABLET PO PRN (20:47)
[2018-05-08] MEDS: ATORVASTATIN 40 MG TABLET PO SCH (21:05)
[2018-05-08] MEDS: LATANOPROST EYE DROP 0.005% 2.5 ML BOTTLE EACHEYE SCH (21:11)
[2018-05-09] VITALS (8 sets, daily range): BP systolic 71–167; BP diastolic 0–76
--- NOTE | 2018-05-09 06:36 | NUR ---
MS RN NOTE: NO CHANGES NOTED THROUGHOUT THE SHIFT. NO APPARENT DISTRESS NOTED. DENIES PAIN AND DISCOMFORT AT THIS TIME. NO SOB NOTED. CALL LIGHT PLACED WITHIN REACH. KEPT CLEAN, DRY AND COMFORTABLE. SAFETY AND FALL PRECAUTIONS OBSERVED AND MAINTAINED. WILL ENDORSE TO DAY SHIFT RN FOR CONTINUITY OF CARE.
[2018-05-09] MEDS: HYDROCODONE/APAP 10/325MG 1 EA TABLET PO PRN ×3 (07:14→22:03)
--- NOTE | 2018-05-09 07:20 | NUR ---
MS/RN NOTE THE PATIENT IS RECEIVED AWAKE AND IN BED. THE PATIENT`S PRIMARY LANGUAGE IS BURKINAN. ALERT AND ORIENTED X4. IN ROOM AIR AND DENIES SOB. RESPIRATION REGULAR AND UNLABORED. DENIES PAIN. RFA G 22 PATENT AND SALINE LOCKED. BED LOW AND LOCKED. SIDE RAILS UP X3. CALL LIGHT WITHIN REACH. WILL CONTINUE TO MONITOR.
[2018-05-09 07:35] LABS: BASOPHILS % (AUTO) 0.3 % (0.0-2.0); HEMATOCRIT 41 % (33-45); HEMOGLOBIN 13.6 g/dL (11.5-14.8); LYMPHOCYTES # (AUTO) 1.7 /CMM (0.8-4.8); LYMPHOCYTES % (AUTO) 28.9 % (20.0-44.0); MEAN CORPUSCULAR HGB CONC 33 g/dl (31.0-36.0); MEAN CORPUSCULAR VOLUME 90 fL (82-100); MONOCYTES # (AUTO) 0.6 /CMM (0.1-1.30); MONOCYTES % (AUTO) 9.1 % (2.0-12.0); NEUTROPHILS # (AUTO) 3.7 /CMM (1.8-8.9); NEUTROPHILS % (AUTO) 61.7 % (43.0-81.0); PLATELET COUNT (AUTO) 201 /CMM (150-450); RED BLOOD CELL COUNT(AUTO) 4.59 MIL/uL (4.0-5.2); WHITE BLOOD COUNT (AUTO) 6.1 K/uL (4.3-11.0)
[2018-05-09] MEDS: BLOOD SUGAR DIAGNOSTIC 1 EACH STRIP IN SCH ×4 (07:38→21:13)
[2018-05-09 08:06] LABS: ALANINE AMINOTRANSFERASE 10 U/L (12-78); ALBUMIN 3.2 g/dL (3.4-5.0); ALKALINE PHOSPHATASE 139 U/L (46-116); ASPARTATE AMINOTRANSFERASE 12 U/L (15-37); BILIRUBIN,TOTAL 0.5 mg/dL (0.2-1.0); CALCIUM, SERUM 9.4 mg/dL (8.5-10.1); CARBON DIOXIDE 27 mmol/L (21-32); CHLORIDE 105 mmol/L (98-107); CREATININE 1.4 mg/dL (0.6-1.3); GLUCOSE 71 mg/dL (74-106); MAGNESIUM 2.2 mg/dL (1.8-2.4); POTASSIUM 4.2 mmol/L (3.5-5.1); SODIUM SERUM 140 mmol/L (136-145); TOTAL PROTEIN, SERUM 6.7 g/dL (6.4-8.2); UREA NITROGEN, BLOOD 19 mg/dL (7-18)
[2018-05-09 08:07] LABS: CREATINE KINASE, TOTAL 22 U/L (26-192)
[2018-05-09] MEDS: DOCUSATE SODIUM 100 MG CAPSULE PO SCH (08:13)
[2018-05-09] MEDS: GLIMEPIRIDE 1 MG TABLET PO SCH (08:13)
[2018-05-09] MEDS: LISINOPRIL (10MG) 10 MG TABLET PO SCH ×2 (08:14→17:00)
[2018-05-09] MEDS: LINAGLIPTIN 5 MG TABLET PO SCH (08:14)
[2018-05-09] MEDS: AMLODIPINE BESYLATE 10 MG TABLET PO SCH (08:14)
[2018-05-09] MEDS: CLONIDINE HCL 0.1 MG TABLET PO SCH ×2 (08:14→17:00)
[2018-05-09] MEDS: CELECOXIB 100 MG CAPSULE PO SCH ×2 (08:14→16:26)
[2018-05-09] MEDS: ASPIRIN EC 81 MG TABLET.DR PO SCH (08:14)
[2018-05-09] MEDS: CARVEDILOL 12.5 MG TABLET PO SCH ×2 (08:15→18:00)
[2018-05-09] MEDS: FLUTICASONE/VILANTEROL 1 EACH BLST.W.DEV IH SCH (08:24)
[2018-05-09] MEDS: NITROGLYCERIN 30 GM TUBE TP SCH (08:25)
[2018-05-09] MEDS: MUPIROCIN OINT 2% 22 GM TUBE SCH ×2 (08:26→21:02)
[2018-05-09] MEDS: BRIMONIDINE TARTRATE OPHT SOLN 5 ML BOTTLE EACHEYE SCH ×3 (08:26→17:30)
[2018-05-09] MEDS ORDERED: BISACODYL SUPP (10 MG) 10 MG/SUPP.RECT SUPP.RECT RC ONE (09:00)
[2018-05-09] MEDS: ENOXAPARIN SODIUM 30 MG/0.3 ML DISP.SYRIN SQ SCH (09:23)
[2018-05-09] MEDS: ISOSORBIDE DINITRATE (20MG) 20 MG TABLET PO SCH ×2 (09:30→16:26)
[2018-05-09] MEDS ORDERED: CELE100C PO (13:00)
[2018-05-09] MEDS ORDERED: MUPI22OI7 (13:00)
[2018-05-09] MEDS ORDERED: ISOS20TA8 PO (13:00)
[2018-05-09] MEDS ORDERED: AMLO10TA7 PO (13:00)
--- NOTE | 2018-05-09 17:09 | NUR ---
MS/RN NOTE THE PATIENT BLOOD PRESSURE 155/53 AND PULSE 59. SCHEDULED ISORDIL 40 MG PO GIVEN. RECHECKED THE BLOOD PRESSURE IN 30 MIN IN ORDER TO ADMINISTER THE REST OF 1700 BLOOD PRESSURE MEDICATIONS AND NOTED THAT THE PATIENT`S BLOOD PRESSURE DROPPED TO 71/38 AND PULSE 64. THE PATENT VERBALIZED FEELING WEAK AND SLEEPY. INFORMED NICHOLAS ANTONIO TO HOLD THE DISCHARGE. NO NEW ORDERS FROM NICHOLAS ANTONIO AT THIS TIME. WILL CONTINUE TO CLOSELY MONITOR THE PATIENT.
--- NOTE | 2018-05-09 17:14 | NUR ---
MS/RN NOTE CATAPRES 0.1 MG AND LISINOPRIL 10 MG DUE AT 1700 IS NOT ADMINISTERED DUE TO PATIENT IS HYPOTENSIVE. NICHOLAS ANTONIO IS MADE AWARE.
--- NOTE | 2018-05-09 18:46 | NUR ---
MS/RN NOTE COREG 25 MG DUE AT 1800 IS NOT ADMINISTERED DUE TO PATIENT`S BLOOD PRESSURE 87/46 AND PULSE 62. NICHOLAS ANTONIO IS MADE AWARE.
--- NOTE | 2018-05-09 18:47 | NUR ---
MS/RN NOTE THE PATIENT ALERT AND ORIENTED X4. RFA G 22 PATENT AND SALINE LOCKED. THE PATIENT IS ON MONITORING FOR HYPOTENSION. NO NAUSEA OR VOMITING AT THIS TIME. VERBAL CUES GIVEN TO KEEP SAFETY AWARENESS HIGH. GOOD AND GENTLE SKIN CARE RENDERED. ALL NEEDS ATTENDED AND ANTICIPATED. BED LOW AND LOCKED. SIDE RAILS UP X2. CALL LIGHT WITHIN REACH. WILL ENDORSE TO AUTOMOTIVE DESIGNER.
--- NOTE | 2018-05-09 20:00 | NUR ---
MS RN NOTE, PATIENT ALERT AND ORIENTED X4, SWISS SPEAKING ONLY, BREATHING EVEN AND UNLABORED, NO S/S OF SOB/ACUTE DISTRESS NOTED, DENIES PAIN OR DISCOMFORT, ON MONITORING FOR HYPOTENSION, BP AT THIS TIME, 95/48, RFA G 22 PATENT AND INTACT S/L, ALL NEEDS ATTENDED, BED LOW AND LOCKED. SIDE RAILS UP X2. CALL LIGHT WITHIN REACH, WILL CONTINUE TO MONITOR CLOSELY. .
[2018-05-09] MEDS: ACETAMINOPHEN 325 MG TABLET PO PRN (20:43)
[2018-05-09] MEDS: ATORVASTATIN 40 MG TABLET PO SCH (21:13)
[2018-05-09] MEDS: LATANOPROST EYE DROP 0.005% 2.5 ML BOTTLE EACHEYE SCH (21:13)
[2018-05-09] MEDS: ZOLPIDEM TARTRATE 5 MG TABLET PO PRN ×2 (22:03→22:06)
--- NOTE | 2018-05-09 22:15 | NUR ---
RN MS NOTES, ENDORSED PATIENT FOR CONTINUATION OF CARE TO LISA PATEL, PATIENT IN STABLE CONDITION AT THIS TIME.
[2018-05-10] VITALS (10 sets, daily range): BP systolic 80–140; BP diastolic 49–79
--- NOTE | 2018-05-10 07:30 | NUR ---
Nurse Notes: received patient sitting up in chair, alert and oriented, complaining of pain 10/10. No complains of any shortness of breath.
[2018-05-10] MEDS: BLOOD SUGAR DIAGNOSTIC 1 EACH STRIP IN SCH ×3 (07:52→17:57)
[2018-05-10] MEDS: CARVEDILOL 12.5 MG TABLET PO SCH ×2 (08:04→18:00)
[2018-05-10] MEDS: HYDROCODONE/APAP 10/325MG 1 EA TABLET PO PRN (08:04)
[2018-05-10] MEDS: ISOSORBIDE DINITRATE (20MG) 20 MG TABLET PO SCH ×2 (08:05→17:52)
[2018-05-10] MEDS: LISINOPRIL (10MG) 10 MG TABLET PO SCH ×2 (08:05→18:47)
[2018-05-10] MEDS: DOCUSATE SODIUM 100 MG CAPSULE PO SCH (08:05)
[2018-05-10] MEDS: ASPIRIN EC 81 MG TABLET.DR PO SCH (08:06)
[2018-05-10] MEDS: AMLODIPINE BESYLATE 10 MG TABLET PO SCH (08:06)
[2018-05-10] MEDS: CELECOXIB 100 MG CAPSULE PO SCH ×2 (08:06→17:52)
[2018-05-10] MEDS: MUPIROCIN OINT 2% 22 GM TUBE SCH (08:10)
[2018-05-10] MEDS: BRIMONIDINE TARTRATE OPHT SOLN 5 ML BOTTLE EACHEYE SCH ×3 (08:10→17:56)
[2018-05-10] MEDS: LINAGLIPTIN 5 MG TABLET PO SCH (08:29)
[2018-05-10] MEDS: FLUTICASONE/VILANTEROL 1 EACH BLST.W.DEV IH SCH (08:30)
[2018-05-10] MEDS: ENOXAPARIN SODIUM 30 MG/0.3 ML DISP.SYRIN SQ SCH (08:32)
--- NOTE | 2018-05-10 12:28 | NUR ---
Nurse Notes: Blood pressure was 80/49- hr 75, afebrile. Patient complaining of pain this morning and ask for her Pierpont. [place] 10/325 was ordered. and was given early in the morning. BP was 140/ systolic when BP medications was given.
--- NOTE | 2018-05-10 13:30 | NUR ---
Nurse Notes: BP is still in 80s systolic. HYDRAULIC DREDGE OPERATOR Nika Oakes was text, and was notified of the low blood pressure. [place] was discontinued, will stagger the BP medications and not given all BP medications together. patient has tylenol order for pain.
[2018-05-10] MEDS: ACETAMINOPHEN 325 MG TABLET PO PRN (14:17)
--- NOTE | 2018-05-10 18:54 | NUR ---
Discharge Note: Patient is discharge home, BP lying down is 105/52 hr 72, hep lock was removed. patient and daughter instructed not to take [place] with all three BP meds. and the take the BP medications separately in the morning, and not all at once. Medicated last with tylenol 650 mg. [place] was discontinued.
[2018-05-10] MEDS ORDERED: ZOLPIDEM TARTRATE 5 MG TABLET PO PRN (22:00)
[2018-05-10 22:12] LABS: *SPE A/G RATIO 1.1 (0.7-1.7); *SPE ALBUMIN 3.2 g/dL (2.9-4.4); *SPE ALPHA-1-GLOBULIN 0.3 g/dL (0.0-0.4); *SPE ALPHA-2-GLOBULIN 0.9 g/dL (0.4-1.0); *SPE BETA GLOBULIN 0.9 g/dL (0.7-1.3); *SPE GLOBULIN, TOTAL 2.9 g/dL (2.2-3.9); *SPE M-SPIKE Not Observed g/dL (Not Observed); *SPEGAMMA GLOBULIN 0.8 g/dL (0.4-1.8)
[2018-05-11 14:17] LABS: PTH, INTACT 25 pg/mL (15-65)
== END 2018-05-10 18:50 | disposition home or self-care (01) | DRG 199 ==
LOC: ER 23:28 → TELE1 05-07 00:37 → MEDSG1 05-07 15:09
PROVIDERS: ADMIT Registered Nurse; ATTEND Registered Nurse
DX: I16.0 Hypertensive urgency (principal); N17.0 Acute kidney failure with tubular necrosis; R07.81 Pleurodynia; I50.32 Chronic diastolic (congestive) heart failure; I13.0 Hypertensive heart and chronic kidney disease with heart failure and stage 1 through stage 4 chronic kidney disease, or unspecified chronic kidney disease; E11.22 Type 2 diabetes mellitus with diabetic chronic kidney disease; D50.9 Iron deficiency anemia, unspecified; E66.9 Obesity, unspecified; E78.5 Hyperlipidemia, unspecified; I35.0 Nonrheumatic aortic (valve) stenosis; W18.30XA Fall on same level, unspecified, initial encounter; Y92.89 Other specified places as the place of occurrence of the external cause; Z68.28 Body mass index [BMI] 28.0-28.9, adult; K59.00 Constipation, unspecified; N18.9 Chronic kidney disease, unspecified; Z96.649 Presence of unspecified artificial hip joint; I95.2 Hypotension due to drugs; T40.605A Adverse effect of unspecified narcotics, initial encounter
CPT/HCPCS: 36415; 71045-TC; 71046; 80048-TC; 80053-TC; 80061-TC; 80076-TC; 81000-TC; 82550-TC; 82570-TC; 82962-TC; 83605-TC; 83735-TC; 83880; 83970; 84100-TC; 84155; 84155-TC; 84165; 84300-TC; 84439-TC; 84443-TC; 84484-TC; 85025-TC; 85730-TC; 87081-TC; 87086-TC; 93307-TC; G0378; J1650; J1815; J2405; J3490